=== PATIENT | male | born 1965 | race Caucasian/White ===

== ENCOUNTER 2021-08-08 20:51 | Emergency (ER) | payer OTHER ==
[2021-08-08 21:16] VITALS: BP 145/75; PULSE 93; TEMP 98.6; BMI 24.3
[2021-08-08] MEDS ORDERED: DIPHTH,PERTUSS(ACELL),TET 0.5 ML DISP.SYRIN IM ONE ×2 (22:11→22:16)
== END 2021-08-08 22:33 | disposition home or self-care (01) ==
LOC: JER 20:51 → JERFT 20:51
PROC: 3E0234Z Introduction of Serum, Toxoid and Vaccine into Muscle, Percutaneous Approach (ICD-10-PCS; principal; 2021-08-08)
PROC: 0HQGXZZ Repair Left Hand Skin, External Approach (ICD-10-PCS; 2021-08-08)
DX: S61.412A Laceration without foreign body of left hand, initial encounter (principal); W26.0XXA Contact with knife, initial encounter
CPT/HCPCS: 12002-25; 90471; 90715; 99284-25

== ENCOUNTER 2021-08-23 21:34 | Emergency (ER) | payer OTHER ==
[2021-08-23 21:42] VITALS: BP 128/70; PULSE 79; TEMP 98.2; BMI 23.6
[2021-08-23] MEDS ORDERED: BACITRACIN 15 GM TUBE TOPICAL OINTMENT ONE (22:48)
== END 2021-08-23 23:26 | disposition home or self-care (01) ==
LOC: JERFT 21:34
DX: S61.412A Laceration without foreign body of left hand, initial encounter (principal); W26.0XXA Contact with knife, initial encounter; Z48.02 Encounter for removal of sutures
CPT/HCPCS: 99281-25

== ENCOUNTER 2023-05-08 00:30 | Emergency (ER) | payer SELFPAY ==
[2023-05-08 00:47] VITALS: BMI 29.1
[2023-05-08] MEDS ORDERED: ACETAMINOPHEN INJECTION 100 ML IVPB ONE (02:16)
[2023-05-08 02:45] LABS: BASO % 0.6 % (0-2.0); EOS % 2.3 % (0-4.5); LYMPH % 20.6 % (8-40); MONO % 10.3 % (3.8-10.2); NEUT % 66.2 % (42.8-82.8)
[2023-05-08 02:47] LABS: EPI CELLS >36 /uL (0-25.1); HYALINE CASTS 1 /uL (0-3.1); URINE APPEARANCE CLEAR; URINE BACTERIA 55 /uL (0-1359); URINE BILIRUBIN NEGATIVE (NEGATIVE); URINE COLOR YELLOW; URINE GLUCOSE (UA) 3+ (NEGATIVE); URINE KETONE NEGATIVE (NEGATIVE); URINE LEUK ESTERASE NEGATIVE (NEGATIVE); URINE NITRITE NEGATIVE (NEGATIVE); URINE PROTEIN 3+ (NEGATIVE); URINE UROBILINOGEN 0.2 mg/dL (0.2-1.0); URINE WBC 46 /uL (0-25.8)
[2023-05-08 02:49] LABS: HEMOGLOBIN 14.8 GM/dL (11.7-16.9); MCH 33.8 pg (25.7-33.7); MCHC 34.5 g/dl (32.0-35.9); MEAN CELL VOLUME 98.1 fl (80-96); MEAN PLT VOLUME 8.8 fl (7.5-11.1); PLATELET COUNT 151 10^3/uL (134-434); RBC 4.38 M/mm3 (4.00-5.60); WHITE BLOOD COUNT 7.4 K/mm3 (4.0-10.0)
[2023-05-08] MEDS: ACETAMINOPHEN 1000 MG/100 ML BAG IVPB ONE (02:49)
[2023-05-08 02:58] LABS: POTASSIUM 3.7 mmol/L (3.5-5.1)
[2023-05-08 03:00] LABS: BLOOD UREA NITROGEN 11.4 mg/dL (7-18); CALCIUM 9.1 mg/dL (8.5-10.1)
[2023-05-08 03:01] LABS: ALBUMIN 3.6 g/dl (3.4-5.0)
[2023-05-08 03:04] LABS: CREATININE 0.6 mg/dL (0.55-1.3)
[2023-05-08 03:05] LABS: TOT PROT 7.8 g/dl (6.4-8.2)
[2023-05-08 03:37] LABS: URINE RBC 533.5 /uL (0-23.9); YEAST NONE SEEN (NEGATIVE)
[2023-05-08 05:30] VITALS: BP 141/83; PULSE 75; RESP 19; TEMP 98.2
== END 2023-05-08 06:06 | disposition short-term general hospital (02) ==
LOC: JER 00:30
PROC: 3E033NZ Introduction of Analgesics, Hypnotics, Sedatives into Peripheral Vein, Percutaneous Approach (ICD-10-PCS; principal; 2023-05-08)
DX: S22.41XA Multiple fractures of ribs, right side, initial encounter for closed fracture (principal); W01.0XXA Fall on same level from slipping, tripping and stumbling without subsequent striking against object, initial encounter
CPT/HCPCS: 36415; 71260-TC; 74177-TC; 80053; 81003; 85025; 87086; 99285-25; J0131